=== PATIENT | female | born 1985 | race Caucasian/White ===

== ENCOUNTER 2016-06-26 17:13 | Emergency (ER) | payer MEDICAID ==
[2016-06-26 17:37] VITALS: BMI 27.9
--- NOTE | 2016-06-26 17:46 | ED PDOC ---
Arrival/HPI - General Historian: Patient - General Chief Complaint: Lower Extremity Problem/Injury Time Seen by Provider: 06/26/16 17:41 - History of Present Illness Narrative History of Present Illness (Text): 06/26/16 17:43 31yo female present with left sided hip pain s/p trauma 2days ago. States she slipped and fell, landing on her left side. States took Ibuprofen 800mg yesterday with mild relieve. Pain is with ambulation. Denies hitting her head. Denies focal weakness, back pain, vaginal bleeding, any other complaint. (Robby, Leonel A) Past Medical History - Provider Review Nursing Documentation Reviewed: Yes - Infectious Disease Hx of Infectious Diseases: None - Psychiatric Hx Substance Use: No - Surgical History Hx Appendectomy: Yes Other/Comment: SINUS SURGERY - Anesthesia Hx Anesthesia: Yes Hx Anesthesia Reactions: No Family/Social History - Physician Review Nursing Documentation Reviewed: Yes Family/Social History: Unknown Family HX Smoking Status: Never Smoked Hx Alcohol Use: No Hx Substance Use: No Allergies/Home Meds Allergies/Adverse Reactions: Allergies No Known Allergies Allergy (Verified 06/26/16 17:38) Review of Systems - Physician Review All systems were reviewed & negative as marked: Yes - Review of Systems Constitutional: Normal Eyes: Normal ENT: Normal Respiratory: Normal Cardiovascular: Normal Gastrointestinal: Normal Genitourinary Female: Normal Musculoskeletal: Arthralgias (LEft hip pain) Skin: Normal Neurological: Normal Endocrine: Normal Hemo/Lymphatic: Normal Psychiatric: Normal Physical Exam Vital Signs Reviewed: Yes Temperature: Afebrile Blood Pressure: Normal Pulse: Regular Respiratory Rate: Normal Appearance: Positive for: Well-Appearing, Non-Toxic, Comfortable Pain Distress: None Mental Status: Positive for: Alert and Oriented X 3 - Systems Exam Head: Present: Atraumatic, Normocephalic Pupils: Present: PERRL Extroacular Muscles: Present: EOMI Conjunctiva: Present: Normal Mouth: Present: Moist Mucous Membranes Neck: Present: Normal Range of Motion Respiratory/Chest: Present: Clear to Auscultation, Good Air Exchange. No: Respiratory Distress, Accessory Muscle Use Cardiovascular: Present: Regular Rate and Rhythm, Normal S1, S2. No: Murmurs Abdomen: Present: Normal Bowel Sounds. No: Tenderness, Distention, Peritoneal Signs Back: Present: Normal Inspection Upper Extremity: Present: Normal Inspection. No: Cyanosis, Edema Lower Extremity: Present: NORMAL PULSES, Tenderness (Left lateral amd anterior hip), Neurovascularly Intact. No: Edema, Normal ROM (Limited on internal and external adduction secondary to pain), Swelling, Erythema, Deformity, Temperature Abnormalties Neurological: Present: GCS=15, CN II-XII Intact, Speech Normal Skin: Present: Warm, Dry, Normal Color. No: Rashes Psychiatric: Present: Alert, Oriented x 3, Normal Insight, Normal Concentration Vital Signs Temp Pulse Resp BP Pulse Ox 06/26/16 17:30 98.7 F 95 H 18 95/65 L 100 Medical Decision Making ED Course and Treatment: 06/26/16 17:50 I was available for consultation during PA evaluation. The chart was reviewed by me, and I agree with disposition. The documented history was done by the physician home and school visitor. The documented physical exam was done by the physician home and school visitor. The documented procedures were done by the physician home and school visitor. (Hamilton Goodman) B/L hip xray - No acute fracture/dislocation noted Pt was ambulatory in ED. Results was DW the pt. she was DC home with analgesic. Referred to her PMD/ortho. TRT ED for any new or worsening symptoms. (Leonel Bustamante) - RAD Interpretation Radiology Orders: 06/26/16 17:43 Hip Bilateral [HIP MIN 3V W/ PELVIS SHERYL] [RAD] Stat - Medication Orders Current Medication Orders: Discontinued Medications Ketorolac Tromethamine (Toradol) 60 mg IM STAT STA Stop: 06/26/16 17:44 Last Admin: 06/26/16 17:54 Dose: 60 mg Disposition/Present on Arrival - Present on Arrival Any Indicators Present on Arrival: No History of DVT/PE: No History of Uncontrolled Diabetes: No Urinary Catheter: No History of Decub. Ulcer: No History Surgical Site Infection Following: None - Disposition Have Diagnosis and Disposition been Completed?: Yes Disposition Time: 18:45 Patient Plan: Discharge - Disposition Diagnosis: Hip pain Disposition: HOME/ ROUTINE Condition: STABLE Discharge Instructions (ExitCare): Hip Pain (ED) Additional Instructions: Follow up with your Doctor/orthopedist Return to ED for any new or worsening symptoms Prescriptions: Cyclobenzaprine [Cyclobenzaprine HCl] 10 mg PO TID #12 tab Naproxen [Naprosyn] 500 mg PO BID #20 tab Referrals: Moose Junior MD [Primary Care Provider] - Follow up with primary López Rojas MD [Staff Provider] - Follow up with primary
[2016-06-26 19:02] VITALS: BP 95/65; PULSE 95; RESP 18; TEMP 98.7; O2SAT 100
--- NOTE | 2016-06-27 09:21 | RAD ---
PROCEDURE: Radiographs of the pelvis and bilateral hips HISTORY: hip pain s/p trauma COMPARISON: None. FINDINGS: BONES: Pelvis: Unremarkable. Right hip:Unremarkable. Left hip:Unremarkable. JOINTS: Right hip: Unremarkable. Left hip: Unremarkable. Sacroiliac Joints: Unremarkable. Pubic symphysis: Unremarkable. SOFT TISSUES: Normal. OTHER FINDINGS: None. IMPRESSION: Unremarkable radiographs of the hips and pelvis.
== END 2016-06-26 19:03 | disposition home or self-care (01) ==
LOC: MERGE 17:13 → ED 17:13
DX: M25.552 Pain in left hip (principal)
CPT/HCPCS: 73522; 96372; 99283; J1885